=== PATIENT | female | born 1990 | race American Indian/Alaskan Native ===

== ENCOUNTER 2017-02-06 22:49 | Emergency (ER) | payer MEDICAID ==
[2017-02-07 00:39] VITALS: BP 149/92
[2017-02-07 01:14] LABS: Basophils % (Auto) 0.2 % (0.0-1.8); Hematocrit 32.7 % (30.3-42.9); Hemoglobin 10.4 gm/dl (10.1-14.3); Mean Corpuscular HGB Conc 32 % (30-34); Mean Corpuscular Volume 75 fl (79-97); Platelet Count 168 K/mm3 (140-440); Red Blood Count 4.39 M/mm3 (3.65-5.03); Red Cell Distribution Width 14.1 % (13.2-15.2)
[2017-02-07 01:15] LABS: Mean Corpuscular Hemoglobin 24 pg (28-32)
[2017-02-07 02:04] LABS: Alanine Aminotransferase 23 units/L (7-56); Albumin/Globulin Ratio 1.5 %; Alkaline Phosphatase 31 units/L (35-129); Anion Gap 21 mmol/L; BUN/Creatinine Ratio 36; Blood Urea Nitrogen 18 mg/dL (7-17); Calcium 8.7 mg/dL (8.4-10.2); Carbon Dioxide 17 mmol/L (22-30); Chloride 105.8 mmol/L (98-107); Glucose 108 mg/dL (65-100); Lipase 31 units/L (13-60); Potassium 3.6 mmol/L (3.6-5.0); Sodium 140 mmol/L (137-145); Total Protein 6.7 g/dL (6.3-8.2)
[2017-02-07 02:17] LABS: Bacteria,Urine 1+ /HPF (Negative); Bilirubin,Urine NEG (Negative); Blood,Urine MOD (Negative); Ketones,Urine 80 mg/dL (Negative); Leukocyte Esterase,Urine NEG (Negative); Mucus,Urine 3+ /HPF; Nitrite,Urine NEG (Negative); Urobilinogen,Urine < 2.0 mg/dL (<2.0)
--- NOTE | 2017-02-07 05:14 | Ultrasound Report ---
FINAL REPORT PROCEDURE: US OB \T\lt; = 14 WK FETUS ADD GEST TECHNIQUE: Real-time sonography of an additional gestation with evaluation of the uterus, placenta, amniotic fluid, adnexa, and fetus was performed with image documentation. Measurements were obtained to determine age/size. M-mode Doppler was used to document heartbeat. CPT 17725 HISTORY: Vaginal Bleeding COMPARISON: No prior studies are available for comparison. FINDINGS: The uterus measures 8.4 x 5.3 x 5.6 centimeters. Right ovary measures 2.6 x 2.3 x 1.4 centimeters. Left ovary measures 4.6 x 2.8 x 3.2 centimeters. There is a 3.1 centimeter corpus luteal cyst in the left ovary. There is a twin intrauterine gestation. FETUS A: [place]-rump length is 5.4 millimeters correspond to estimated gestational age of 6 weeks and 2 days. Heart rate is 115 beats per minute. Yolk sac is normal. Estimated date of delivery is 09/30/2017. FETUS B: [place]-rump length is 6.4 millimeters corresponding to estimated gestational age is 6 weeks and 3 days. Heart rate is 115 beats per minute. There is a normal yolk sac estimated date of delivery is 09/30/2017. IMPRESSION: Twin living intrauterine gestation at approximately 6 weeks, 3 days. EDC by US: 09/30/2017.
--- NOTE | 2017-02-07 05:14 | Ultrasound Report ---
FINAL REPORT PROCEDURE: US OB TRANSVAGINAL TECHNIQUE: TRANSVAGINAL PELVIC ULTRASOUND WAS PERFORMED. HISTORY: Vaginal Bleeding COMPARISON: No prior studies are available for comparison. FINDINGS: The uterus measures 8.4 x 5.3 x 5.6 centimeters. Right ovary measures 2.6 x 2.3 x 1.4 centimeters. Left ovary measures 4.6 x 2.8 x 3.2 centimeters. There is a 3.1 centimeter corpus luteal cyst in the left ovary. There is a twin intrauterine gestation. FETUS A: [place]-rump length is 5.4 millimeters correspond to estimated gestational age of 6 weeks and 2 days. Heart rate is 115 beats per minute. Yolk sac is normal. Estimated date of delivery is 09/30/2017. FETUS B: [place]-rump length is 6.4 millimeters corresponding to estimated gestational age is 6 weeks and 3 days. Heart rate is 115 beats per minute. There is a normal yolk sac estimated date of delivery is 09/30/2017. IMPRESSION: Twin living intrauterine gestation at approximately 6 weeks, 3 days. EDC by US: 09/30/2017.
--- NOTE | 2017-02-07 05:15 | Ultrasound Report ---
FINAL REPORT PROCEDURE: US OB \T\lt; = 14 WK FETUS DD GEST TECHNIQUE: TRANSABDOMINAL PELVIC ULTRASOUND PERFORMED. HISTORY: Vaginal Bleeding COMPARISON: No prior studies are available for comparison. FINDINGS: The uterus measures 8.4 x 5.3 x 5.6 centimeters. Right ovary measures 2.6 x 2.3 x 1.4 centimeters. Left ovary measures 4.6 x 2.8 x 3.2 centimeters. There is a 3.1 centimeter corpus luteal cyst in the left ovary. There is a twin intrauterine gestation. FETUS A: [place]-rump length is 5.4 millimeters correspond to estimated gestational age of 6 weeks and 2 days. Heart rate is 115 beats per minute. Yolk sac is normal. Estimated date of delivery is 09/30/2017. FETUS B: [place]-rump length is 6.4 millimeters corresponding to estimated gestational age is 6 weeks and 3 days. Heart rate is 115 beats per minute. There is a normal yolk sac estimated date of delivery is 09/30/2017. IMPRESSION: Twin living intrauterine gestation at approximately 6 weeks, 3 days. EDC by US: 09/30/2017.
== END 2017-02-07 00:59 | disposition left against medical advice (07) ==
LOC: ED 22:49
DX: O46.91 Antepartum hemorrhage, unspecified, first trimester (principal); Z53.21 Procedure and treatment not carried out due to patient leaving prior to being seen by health care provider
CPT/HCPCS: 36415; 76801; 76802; 76817; 80053; 81001; 83690; 84702; 85025; 86850; 86900; 86901